=== PATIENT | male | born 1960 | race Caucasian/White ===

== ENCOUNTER 2017-01-06 18:04 | Emergency (ER) | payer BC ==
[~2017-01-06] VITALS: Ht 188 cm; Wt 104.0 kg
[~2017-01-06 18:04] MED LIST: Z.0.NO CURRENT MEDS
[2017-01-06 18:05] VITALS: BP 149/86; PULSE 75; RESP 16; TEMP 98.2; O2SAT 98
[2017-01-06 19:05] VITALS: BP 156/107; PULSE 62; RESP 18; O2SAT 97
[2017-01-06] MEDS ORDERED: SODIUM CHLOR 0.9% 1000 ML INJ 1,000 ML IV SCH (19:10)
[2017-01-06 19:15] VITALS: O2SAT 97
[2017-01-06] MEDS ORDERED: SODIUM CHLORIDE 0.9% FLUSH 5 ML FLUSH IV FLUSH PRN (19:15)
--- NOTE | 2017-01-06 19:35 | RADRPT ---
EXAM DATE/TIME: 01/06/2017 19:20 [facility] COMPARISON: No previous studies available for comparison. INDICATIONS : Syncopal episode today MEDICAL HISTORY : None. SURGICAL HISTORY : None. ENCOUNTER: Initial ACUITY: 1 day PAIN SCORE: 0/10 LOCATION: Bilateral chest FINDINGS: A single view of the chest demonstrates the lungs to be symmetrically aerated without evidence of mas s, infiltrate or effusion. The cardiomediastinal contours are unremarkable. Osseous structures are intact. CONCLUSION: No acute disease. Sergio Schmitz MD on January 06, 2017 at 19:33 Board Certified Radiologist. This report was verified electronically.
[2017-01-06 19:48] LABS: AUTOMATED NEUTROPHIL # 2.3 TH/MM3 (1.8-7.7); BASOPHIL % 0.5 % (0.0-2.0); EOSINOPHIL # 0.3 TH/MM3 (0-0.4); EOSINOPHIL % 7.8 % (0.0-4.0); HEMATOCRIT 30.9 % (39.0-51.0); HEMO FLAGS DIFF FINAL; LYMPH % 35.4 % (9.0-44.0); LYMPHOCYTE # 1.5 TH/MM3 (1.0-4.8); MEAN CELL VOLUME 110.6 FL (80.0-100.0); MEAN CORPUSCULAR HEMOGLOBIN 36.5 PG (27.0-34.0); MONO % 3.4 % (0.0-8.0); NEUT % 52.9 % (16.0-70.0); PLATELET COUNT 223 TH/MM3 (150-450); RED CELL DISTRIBUTION WIDTH 16.6 % (11.6-17.2); WHITE BLOOD COUNT 4.2 TH/MM3 (4.0-11.0)
[2017-01-06 19:55] LABS: CHLORIDE 110 MEQ/L (98-107); SODIUM (NA) 145 MEQ/L (136-145)
[2017-01-06 19:56] LABS: BLOOD, URINE NEG (NEG); GLUCOSE,URINE NEG (NEG); KETONE, URINE TRACE mg/dL (NEG); NITRITE,URINE NEG (NEG); PH, URINE 5.5 (5.0-8.5)
[2017-01-06 19:59] LABS: ANION GAP 8 MEQ/L (5-15); BICARBONATE 27.4 MEQ/L (21.0-32.0); BLOOD UREA NITROGEN 19 MG/DL (7-18)
[2017-01-06 20:00] VITALS: BP 161/94; PULSE 62; RESP 18; O2SAT 98
[2017-01-06 20:00] LABS: INTERNATIONAL NORMALIZED RATIO 0.9 RATIO; PROTHROMBIN TIME - PATIENT 10.3 SEC (9.8-11.6)
[2017-01-06 20:02] LABS: ALT (GPT) 29 U/L (12-78); AST (GOT) 18 U/L (15-37); GLOMERULAR FILTRATION RATE 62 ML/MIN (>89)
[2017-01-06 20:03] LABS: AMPHETAMINE, URINE NEG (NEG); BARBITURATES, URINE NEG (NEG)
[2017-01-06 20:03] LABS: TOTAL BILIRUBIN ADULT 0.3 MG/DL (0.2-1.0)
[2017-01-06 20:04] LABS: COCAINE, URINE NEG (NEG)
[2017-01-06 20:05] LABS: ALKALINE PHOSPHATASE 48 U/L (45-117); CREATINE KINASE 109 U/L (39-308)
[2017-01-06 20:08] LABS: HYALINE CAST, URINE 0-2 /lpf (RARE); MUCUS URINE MOD /lpf (OCC); URINE COLOR YELLOW (YELLW/STRAW)
[2017-01-06 20:09] LABS: COMMENT (UR) CATH-CULT NOT IND; CULTURE IF INDICATED CATH CULTURE NOT IND; SQUAMOUS EPITHELIAL CELL URINE 0-5 /hpf (0-5)
--- NOTE | 2017-01-06 20:24 | RADRPT ---
EXAM DATE/TIME: 01/06/2017 19:50 [facility] COMPARISON: No previous studies available for comparison. INDICATIONS : Numbness and weakness. RADIATION DOSE: 66.45 CTDIvol (mGy) MEDICAL HISTORY : Hypertension. SURGICAL HISTORY : None. ENCOUNTER: Initial ACUITY: 1 month PAIN SCALE: 0/10 LOCATION: cranial TECHNIQUE: Multiple contiguous axial images were obtained of the head. Using automated exposure control and adj ustment of the mA and/or kV according to patient size, radiation dose was kept as low as reasonably a chievable to obtain optimal diagnostic quality images. DICOM format image data is available electro nically for review and comparison. FINDINGS: CEREBRUM: The ventricles are normal for age. No evidence of midline shift, mass lesion, hemorrhage or acute in farction. No extra-axial fluid collections are seen. POSTERIOR FOSSA: The cerebellum and brainstem are intact. The 4th ventricle is midline. The cerebellopontine angle i s unremarkable. EXTRACRANIAL: The visualized portion of the orbits is intact. SKULL: The calvaria is intact. No evidence of skull fracture. CONCLUSION: No acute intracranial disease. Sergio Schmitz MD on January 06, 2017 at 20:21 Board Certified Radiologist. This report was verified electronically.
--- NOTE | 2017-01-06 20:32 | RADRPT ---
EXAM DATE/TIME: 01/06/2017 19:50 [facility] COMPARISON: No previous studies available for comparison. INDICATIONS : Upper extremity and body numbness. RADIATION DOSE: 26.45 CTDIvol (mGy) MEDICAL HISTORY : Hypertension. SURGICAL HISTORY : None. ENCOUNTER: Initial ACUITY: 1 day PAIN SCALE: 0/10 LOCATION: neck TECHNIQUE: Volumetric scanning of the cervical spine was performed. Multiplanar reconstructions in the sagittal, coronal and oblique axial planes were performed. Using automated exposure control and adjustment o f the mA and/or kV according to patient size, radiation dose was kept as low as reasonably achievable to obtain optimal diagnostic quality images. DICOM format image data is available electronically f or review and comparison. FINDINGS: VERTEBRAE: Normal vertebral body height. ALIGNMENT: No evidence of subluxation. C2-C3: The bony spinal canal is normal in size. No evidence of disc bulge or herniation. The neural forami na are bilaterally patent. C3-C4: The bony spinal canal is normal in size. No evidence of disc bulge or herniation. The neural forami na are bilaterally patent. C4-C5: Minimal posterior disc osteophyte complex. The neural foramina are bilaterally patent. C5-C6: Minimal posterior disc osteophyte complex. The neural foramina are bilaterally patent. C6-C7: The bony spinal canal is normal in size. No evidence of disc bulge or herniation. The neural forami na are bilaterally patent. C7-T1: The bony spinal canal is normal in size. No evidence of disc bulge or herniation. The neural forami na are bilaterally patent. CONCLUSION: 1. No fracture or subluxation. 2. Minimal posterior disc osteophyte complex at C4-5 and C5-6 levels. No canal stenosis. Sergio Schmitz MD on January 06, 2017 at 20:29 Board Certified Radiologist. This report was verified electronically.
[2017-01-06 21:29] VITALS: BP 159/87; PULSE 58; RESP 18; TEMP 98.6; O2SAT 98
--- NOTE | 2017-01-06 21:34 | PD ---
HPI Chief Complaint: General Weakness Time Seen by Provider: 18:51 Travel History International Travel<30 days: No Contact w/Intl Traveler<30days: No Traveled to known affect area: No History of Present Illness HPI Patient is a 56 year old male who comes in complaining of fatigue and numbness to his hands, left foot, and rib cage/back. He says this has been going on for months, but his fatigue got much worse in the past few days. He saw his doctor two weeks ago, who prescribed steroids, which he says improved some of the symptoms to his arms. He also had blood work done showing anemia. He went to the chiropractor who suggested he might be B12 deficient. He denies alcohol use. He denies pain. He denies any injuries or bleeding. 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) Social History Alcohol Use: No Tobacco Use: No Substance Use: No Allergies-Medications (Allergen,Severity, Reaction): Coded Allergies: No Known Allergies (Verified , 01/06/17) Reported Meds & Prescriptions Reported Meds & Active Scripts Active No Active Prescriptions or Reported Medications Review of Systems Except as stated in HPI: all other systems reviewed are Neg General / Constitutional: No: Fever, Chills Eyes: No: Blurred Vision HENT: No: Headaches, Lightheadedness Cardiovascular: No: Chest Pain or Discomfort Respiratory: No: Shortness of Breath Gastrointestinal: No: Nausea, Vomiting Musculoskeletal: Positive: Myalgias, No: Limited ROM, Edema Skin: No Rash, No Change in Pigmentation Neurologic: Positive: Paresthesia, Sensory Disturbance Physical Exam Narrative GENERAL: Awake and alert, in no acute distress. SKIN: Focused skin assessment warm/dry. HEAD: Atraumatic. Normocephalic. EYES: Pupils equal and round. No scleral icterus. ENT: Mucous membranes pink and moist. NECK: Trachea midline. No JVD. Tender to palpation of left trapezius muscle. No cervical spine tenderness. CARDIOVASCULAR: Regular rate and rhythm. No murmur appreciated. RESPIRATORY: No accessory muscle use. Clear to auscultation. Breath sounds equal bilaterally. GASTROINTESTINAL: Abdomen soft, non-tender, nondistended. MUSCULOSKELETAL: No obvious deformities. No clubbing. No cyanosis. No edema. NEUROLOGICAL: Awake and alert. No obvious cranial nerve deficits. Motor grossly within normal limits. Normal speech. Patient states she can feel the pressure when he is touched, but it feels "different." This is the same on each side of his body. There is no saddle anesthesia. Motor strength is equal in both of his arms and legs. Strength is 5 out of 5 in his extremities. PSYCHIATRIC: Appropriate mood and affect; insight and judgment normal. Data Data Last Documented VS Vital Signs Date Time Temp Pulse Resp B/P Pulse Ox O2 Delivery O2 Flow Rate FiO2 01/06/17 20:00 62 18 161/94 98 Room Air 01/06/17 18:05 98.2 Orders Electrocardiogram (01/06/17 19:10) Complete Blood Count With Diff (01/06/17 19:10) Comprehensive Metabolic Panel (01/06/17 19:10) Creatine Kinase (Cpk) (01/06/17 19:10) Prothrombin Time / Inr (Pt) (01/06/17 19:10) Act Partial Throm Time (Ptt) (01/06/17 19:10) Troponin I (01/06/17 19:10) Thyroid Stimulating Hormone (01/06/17 19:10) Urinalysis - C+S If Indicated (01/06/17 19:10) Ua Includes Microscopic (01/06/17 19:10) Chest, Single Ap (01/06/17 19:10) Ct Brain W/O Iv Contrast(Rout) (01/06/17 19:10) Blood Glucose (01/06/17 19:10) Ecg Monitoring (01/06/17 19:10) Iv Access Insert/Monitor (01/06/17 19:10) Oximetry (01/06/17 19:10) Sodium Chloride 0.9% Flush (Ns Flush) (01/06/17 19:15) Sodium Chlor 0.9% 1000 Ml Inj (Ns 1000 M (01/06/17 19:10) Drug Screen, Random Urine (01/06/17 19:10) Alcohol (Ethanol) (01/06/17 19:10) Ct Cerv Spine W/O Contrast (01/06/17 ) Labs Laboratory Tests Test 01/06/17 01/06/17 19:00 19:35 Urine Color YELLOW Urine Turbidity CLEAR Urine pH 5.5 Urine Specific [place] 1.024 Urine Protein NEG mg/dL Urine Glucose (UA) NEG mg/dL Urine Ketones TRACE mg/dL Urine Occult Blood NEG Urine Nitrite NEG Urine Bilirubin NEG Urine Leukocyte Esterase NEG Urine WBC 6-8 /hpf Urine Squamous Epithelial 0-5 /hpf Cells Urine Hyaline Casts 0-2 /lpf Urine Fine Granular Casts 0-2 /lpf Urine White Blood Cell Casts 3-5 /lpf Urine Mucus MOD /lpf Microscopic Urinalysis Comment CATH-CULT NOT IND Urine Opiates Screen NEG Urine Barbiturates Screen NEG Urine Amphetamines Screen NEG Urine Benzodiazepines Screen NEG Urine Cocaine Screen NEG Urine Cannabinoids Screen NEG White Blood Count 4.2 TH/MM3 Red Blood Count 2.80 MIL/MM3 Hemoglobin 10.2 GM/DL Hematocrit 30.9 % Mean Corpuscular Volume 110.6 FL Mean Corpuscular Hemoglobin 36.5 PG Mean Corpuscular Hemoglobin 33.0 % Concent Red Cell Distribution Width 16.6 % Platelet Count 223 TH/MM3 Mean Platelet Volume 7.3 FL Neutrophils (%) (Auto) 52.9 % Lymphocytes (%) (Auto) 35.4 % Monocytes (%) (Auto) 3.4 % Eosinophils (%) (Auto) 7.8 % Basophils (%) (Auto) 0.5 % Neutrophils # (Auto) 2.3 TH/MM3 Lymphocytes # (Auto) 1.5 TH/MM3 Monocytes # (Auto) 0.1 TH/MM3 Eosinophils # (Auto) 0.3 TH/MM3 Basophils # (Auto) 0.0 TH/MM3 CBC Comment DIFF FINAL Differential Comment Prothrombin Time 10.3 SEC Prothromb Time International 0.9 RATIO Ratio Activated Partial 25.0 SEC Thromboplast Time Sodium Level 145 MEQ/L Potassium Level 4.0 MEQ/L Chloride Level 110 MEQ/L Carbon Dioxide Level 27.4 MEQ/L Anion Gap 8 MEQ/L Blood Urea Nitrogen 19 MG/DL Creatinine 1.20 MG/DL Estimat Glomerular Filtration 62 ML/MIN Rate Random Glucose 106 MG/DL Calcium Level 8.3 MG/DL Total Bilirubin 0.3 MG/DL Aspartate Amino Transf 18 U/L (AST/SGOT) Alanine Aminotransferase 29 U/L (ALT/SGPT) Alkaline Phosphatase 48 U/L Total Creatine Kinase 109 U/L Troponin I LESS THAN 0.02 NG/ML Total Protein 6.7 GM/DL Albumin 3.4 GM/DL Thyroid Stimulating Hormone 1.650 uIU/ML 3rd Gen Ethyl Alcohol Level LESS THAN 3 MG/DL MDM Medical Decision Making Medical Screen Exam Complete: Yes Emergency Medical Condition: Yes Interpretation(s) ECG shows normal sinus rhythm with incomplete right bundle-branch block. Differential Diagnosis Anemia versus electrolyte abnormality versus dehydration Narrative Course Patient is a 56-year-old male comes in complaining of fatigue as well as numbness to different parts of his body. Exam shows no motor abnormalities. He has decreased sensation reportedly on both sides of his body. CT head and C- spine performed show no acute abnormalities. Labs show hemoglobin of 10.7, with elevated MCV. I believe the patient likely is B12 deficient. He is advised to call his doctor tomorrow to have further testing done. Advised increase his fluid intake as he did feel better after a liter of fluids. Advised to return to the emergency department as needed for any worsening symptoms. Both he and his are comfortable with this plan at this time. Diagnosis Primary Impression: Weakness Additional Impression: Anemia Qualified Code: D64.9 - Anemia, unspecified type Patient Instructions: Anemia (ED), General Instructions, Weakness (ED) Additional Instructions: Increase your fluid intake. Follow up with your doctor for further management. You should have your folate and B12 levels checked. Return to the ED as needed for any worsening symptoms. Scripts No Active Prescriptions or Reported Meds Disposition: 01 DISCHARGE HOME Condition: Stable Mary Alfaro MD Jan 06, 2017 21:34
--- NOTE | 2017-01-07 12:52 | EKG ---
Date Performed: 01/06/2017 Time Performed: 19:25:10 PTAGE: 56 years EKG: Sinus rhythm INCOMPLETE RIGHT BUNDLE BRANCH BLOCK BORDERLINE ECG PREVIOUS TRACING : 12/13/2006 13.56 DOCTOR: Trever Cavanaugh Interpretating Date/Time 01/07/2017 12:48:26
== END 2017-01-06 21:58 | disposition home or self-care (01) ==
LOC: PHED 18:04
DX: D64.9 Anemia, unspecified (principal); I45.10 Unspecified right bundle-branch block; R55 Syncope and collapse; R20.0 Anesthesia of skin; I10 Essential (primary) hypertension
CPT/HCPCS: 70450; 71010; 72125; 80053; 80307; 81001; 82550; 84443; 84484; 85025; 85610; 85730; 93005; 96360; 99285; J7030